=== PATIENT | female | born 1965 ===

== ENCOUNTER 2016-12-21 09:26 | Day surgery (SDC) | payer SELFPAY ==
[2016-12-21 14:36] VITALS: BP 113/69; PULSE 55; RESP 17; TEMP 97.5; O2SAT 0
== END 2016-12-21 14:10 | disposition home or self-care (01) ==
LOC: C.ENDO 09:26
PROVIDERS: ATTEND Internal Medicine Gastroenterology
DX: K29.00 Acute gastritis without bleeding (principal); K20.9 Esophagitis, unspecified; B96.81 Helicobacter pylori [H. pylori] as the cause of diseases classified elsewhere; K26.9 Duodenal ulcer, unspecified as acute or chronic, without hemorrhage or perforation; K57.30 Diverticulosis of large intestine without perforation or abscess without bleeding; D12.3 Benign neoplasm of transverse colon; K64.8 Other hemorrhoids; K62.5 Hemorrhage of anus and rectum